=== PATIENT | female | born 1950 | race Two or more races ===

== ENCOUNTER → 2017-05-12 | Emergency (ER) | payer OTHER ==
[~2017-05-12] VITALS: Ht 154.9 cm; Wt 49.0 kg
[~2017-05-12] MED LIST: ARICEPT10 MG; NAMENDA XR28 MG
== END | disposition left against medical advice (07) ==
LOC: ER 09:55
DX: Z53.20 Procedure and treatment not carried out because of patient's decision for unspecified reasons (principal)

== ENCOUNTER → 2018-07-01 | Outpatient (CLI) | payer OTHER | END | disposition home or self-care (01) | LOC: SONOGRAMA 11:35 | DX: R22.2 Localized swelling, mass and lump, trunk (principal) ==